=== PATIENT | male | born 1995 | race Caucasian/White ===

== ENCOUNTER 2016-07-21 03:14 | Emergency (ER) | payer BC ==
[~2016-07-21] VITALS: Ht 190.5 cm; Wt 78.1 kg
[2016-07-21 03:15] VITALS: TEMP 36.7; Ht 190.5 cm; Wt 78.1 kg
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
[2016-07-21 04:26] VITALS: BP 126/71; PULSE 93; O2SAT 98
--- NOTE | 2016-07-21 07:11 | DIAGNOSTIC IMAGING REPORT ---
HEAD CT NONCONTRAST CT DOSE: 537.48 mGy.cm HISTORY: Head injury. eval for head trauma TECHNIQUE: Multiaxial CT images of the head were performed without the use of intravenous contrast. Automated exposure control was utilized for this study. Comparison: None. Findings: The paranasal sinuses and mastoid air cells are clear. The calvarium and skull base are intact. The ventricles and sulci are within normal limits. There is no mass, hematoma, midline shift, or acute infarct. Impression: No acute intracranial abnormality. Electronically signed by: Latrell Barajas M.D. 07/21/2016 7:10 AM Dictated Date/Time: 07/21/2016 7:09 AM
== END 2016-07-21 04:27 | disposition home or self-care (01) ==
LOC: EDBD 03:14 → C.EDB 03:17
DX: S06.0X0A Concussion without loss of consciousness, initial encounter (principal); W22.8XXA Striking against or struck by other objects, initial encounter; Y92.89 Other specified places as the place of occurrence of the external cause